=== PATIENT | female | born 1955 | race African-American/Black ===

== ENCOUNTER 2020-07-28 09:31 | Inpatient (IN) | payer OTHER ==
[~2020-07-28] VITALS: Ht 165.1 cm; Wt 85.3 kg
[~2020-07-28 09:31] MED LIST: AMLO10TA13 PO; CLOP75TA28 PO; GLIP10TA9 PO; LOSA100T22 PO; MET50T PO; METF-372 PO
[2020-07-28] MEDS ORDERED: amLODIPine BESYLATE 5 MG TAB PO ONE (09:45)
[2020-07-28 10:13] LABS: Basophils # (auto) 0 10 ^3/uL (0-0.2); Eosinophils # (auto) 0.1 10 ^3/uL (0-0.8); Monocytes # (auto) 0.3 10 ^3/uL (0-1.3); Neutrophils # (auto) 4.1 10 ^3/uL (1.6-8.6); Nucleated Red Blood Cells % 0.1 %; Red Blood Cells 4.34 10^6/uL (4.0-5.20); White Blood Cell 5.5 10^3/uL (4.4-10.8)
[2020-07-28 10:15] LABS: Basophils % (auto) 0.7 % (0.0-2.0); Eosinophils % (auto) 1.2 % (0.0-7.0); Hematocrit 34.2 % (36.0-46.0); Hemoglobin 10.9 g/dL (12.2-16.2); Lymphocytes % (auto) 17.8 % (10.0-50.0); Mean Corpuscular Hgb Conc. 31.7 g/dL (32.0-36.0); Mean Corpuscular Volume 78.7 fL (80.0-100.0); Monocytes % (auto) 4.6 % (0.0-12.0); Neutrophils % (auto) 75.7 % (37.0-80.0); Platelet Count (auto) 180 10^3/uL (140-450); Red Cell Distribution Width 16.4 % (11.8-14.3)
[2020-07-28] MEDS ORDERED: LORazepam 0.5 MG TAB PO ONE (10:15)
[2020-07-28 10:31] LABS: Calcium 9.1 mg/dL (8.5-10.1); Magnesium 2.6 mg/dL (1.6-2.6); Potassium 4.4 mmol/L (3.5-5.1)
[2020-07-28 10:37] LABS: BUN/Creatinine Ratio 14.5; Bilirubin, Total 0.3 mg/dL (0.2-1.0); Total Protein 7.2 g/dL (6.4-8.2)
[2020-07-28 11:00] LABS: Urine Bacteria NONE SEEN /hpf (None Seen); Urine Blood 1+ /uL (Negative); Urine Hyaline Cast FEW /lpf (0 - 2); Urine Specific Gravity 1.012 (1.001-1.035); Urine WBC 1 /hpf (0 - 5)
[2020-07-28 11:01] LABS: Partial Thromboplastin Time 25.7 sec (23.0-31.2)
[2020-07-28] MEDS ORDERED: ENOXAPARIN SOD 100 MG/1 ML SYRINGE SC ONE (16:30)
[2020-07-28] MEDS ORDERED: FUROSEMIDE 100 MG/10ML VIAL IV ONE (17:15)
[2020-07-28] MEDS ORDERED: cloNIDine HCL 0.1 MG TAB PO ONE (17:15)
[2020-07-28] MEDS ORDERED: MORPHINE SULF INJ 2 MG/ML SYRINGE 1ML IV PRN ×3 (17:15→17:45)
[2020-07-28] MEDS ORDERED: NITROGLYCERIN 0.4 MG SL TAB SL PRN ×3 (17:15→17:45)
[2020-07-28] MEDS ORDERED: LOSARTAN POTASSIUM 50 MG TAB PO ONE (17:30)
[2020-07-28] MEDS ORDERED: HYDROcodone-ACET 5/325MG TAB PO PRN (17:45)
[2020-07-28] MEDS ORDERED: MORPHINE SULFATE 4 MG/ML SYR/VIAL IV PRN (17:45)
[2020-07-28] MEDS ORDERED: ATORVASTATIN 20 MG TAB PO ONE (17:45)
[2020-07-28] MEDS ORDERED: LORazepam 0.5 MG TAB PO PRN (17:45)
[2020-07-28] MEDS ORDERED: ALUM & MAG HYDROX-SIMETH LIQ(MAALOX) 30 ML PO ONE (17:45)
[2020-07-28] MEDS ORDERED: METOPROLOL SUCCINATE XL 50 MG TAB PO ONE (17:45)
[2020-07-28] MEDS ORDERED: ONDANSETRON HCL 4 MG/2 ML VIAL IV PRN (17:45)
[2020-07-28] MEDS ORDERED: ACETAMINOPHEN 325 MG TAB PO PRN (17:45)
[2020-07-28] MEDS ORDERED: DEXTROSE (50%) 50ML SYRG IV PRN (18:00)
[2020-07-28] MEDS: SOD CHL 0.45% 1,000 ML IV SCH (18:03)
[2020-07-28 19:10] VITALS: BP 187/74
[2020-07-28] MEDS: IPRATROPIUM BROM 0.5 MG/2.5ML INH SOL NEB SCH ×2 (19:48→22:07)
[2020-07-28] MEDS: FUROSEMIDE 20 MG/2 ML VIAL IV SCH (20:00)
[2020-07-28] MEDS: ACCU-CHEK COMFORT CURVE STRIP VI SCH (21:30)
[2020-07-28] MEDS: hydrALAZINE HCL 20 MG/ML VL IV PRN (21:32)
[2020-07-28 22:00] VITALS: BP 190/85
[2020-07-28] MEDS ORDERED: METOPROLOL TARTRATE 25 MG TAB PO SCH (22:00)
[2020-07-28] MEDS: InsuLIN REG 1unit/0.01ml Soln (100units/ml) SC SCH (23:49)
[2020-07-29] VITALS (27 sets, daily range): BP systolic 116–212; BP diastolic 58–126
[2020-07-29] MEDS: SOD CHL 0.45% 1,000 ML IV SCH (00:52)
[2020-07-29] MEDS ORDERED: METOPROLOL SUCCINATE XL 50 MG TAB PO ONE (01:00)
[2020-07-29] MEDS ORDERED: hydrALAZINE HCL 25 MG TAB PO ONE (01:00)
[2020-07-29] MEDS: IPRATROPIUM BROM 0.5 MG/2.5ML INH SOL NEB SCH ×6 (01:55→21:54)
[2020-07-29] MEDS: hydrALAZINE HCL 25 MG TAB PO SCH ×3 (05:19→21:55)
[2020-07-29] MEDS: hydrALAZINE HCL 20 MG/ML VL IV PRN ×2 (05:20→20:51)
[2020-07-29] MEDS ORDERED: hydrALAZINE HCL 25 MG TAB PO SCH (06:00)
[2020-07-29] MEDS: InsuLIN REG 1unit/0.01ml Soln (100units/ml) SC SCH ×4 (06:48→22:00)
[2020-07-29] MEDS: ACCU-CHEK COMFORT CURVE STRIP VI SCH ×4 (06:48→22:24)
[2020-07-29] MEDS: FUROSEMIDE 20 MG/2 ML VIAL IV SCH (06:49)
[2020-07-29] MEDS: DOCUSATE SOD 100 MG CAP PO SCH (08:43)
[2020-07-29] MEDS: ASPirin 81 mg TAB PO SCH (08:44)
[2020-07-29] MEDS ORDERED: LOSARTAN POTASSIUM 50 MG TAB PO ONE (09:30)
[2020-07-29] MEDS ORDERED: amLODIPine BESYLATE 5 MG TAB PO SCH (10:00)
[2020-07-29] MEDS ORDERED: METOPROLOL SUCCINATE XL 50 MG TAB PO SCH (10:00)
[2020-07-29] MEDS ORDERED: LOSARTAN POTASSIUM 50 MG TAB PO SCH (10:00)
[2020-07-29] MEDS: METOPROLOL TARTRATE 50 MG TAB PO SCH ×2 (10:00→21:57)
[2020-07-29] MEDS ORDERED: SOD CHL 0.45% 1,000 ML IV SCH (10:30)
[2020-07-29] MEDS ORDERED: NIFEdipine ER 30 MG TAB PO ONE (10:30)
[2020-07-29 10:37] LABS: Basophils # (auto) 0.1 10 ^3/uL (0-0.2); Eosinophils # (auto) 0.1 10 ^3/uL (0-0.8); Hemoglobin 10.6 g/dL (12.2-16.2); Lymphocytes # (auto) 1.1 10 ^3/uL (0.4-5.4)
[2020-07-29 10:39] LABS: Basophils % (auto) 0.8 % (0.0-2.0); Eosinophils % (auto) 1.3 % (0.0-7.0); Hematocrit 33.5 % (36.0-46.0); Lymphocytes % (auto) 18.9 % (10.0-50.0); Mean Corpuscular Hemoglobin 25.1 pg (28.0-32.0); Mean Corpuscular Hgb Conc. 31.5 g/dL (32.0-36.0); Mean Corpuscular Volume 79.6 fL (80.0-100.0); Monocytes # (auto) 0.3 10 ^3/uL (0-1.3); Monocytes % (auto) 5.2 % (0.0-12.0); Neutrophils # (auto) 4.5 10 ^3/uL (1.6-8.6); Neutrophils % (auto) 73.8 % (37.0-80.0); Nucleated Red Blood Cells % 0.1 %; Platelet Count (auto) 194 10^3/uL (140-450); Red Blood Cells 4.21 10^6/uL (4.0-5.20); Red Cell Distribution Width 16.4 % (11.8-14.3); White Blood Cell 6.1 10^3/uL (4.4-10.8)
[2020-07-29 10:47] LABS: Albumin 2.8 g/dL (3.4-5.0); Calcium 8.8 mg/dL (8.5-10.1); Potassium 4.2 mmol/L (3.5-5.1)
[2020-07-29 10:50] LABS: BUN/Creatinine Ratio 13.4; Bilirubin, Total 0.2 mg/dL (0.2-1.0); Total Protein 6.8 g/dL (6.4-8.2)
[2020-07-29 10:51] LABS: Magnesium 2.3 mg/dL (1.6-2.6); Phosphorus 4.1 mg/dL (2.5-4.90)
[2020-07-29 11:38] LABS: Urine WBC None Seen /hpf (0 - 5)
[2020-07-29 11:54] LABS: Urine Bacteria NONE SEEN /hpf (None Seen); Urine Blood TRACE /uL (Negative); Urine Specific Gravity 1.009 (1.001-1.035)
[2020-07-29 12:07] LABS: Protein, Urine 158.7 mg/dL (0.0-11.9)
[2020-07-29 12:07] LABS: Alcohol, Urine < 3.0 mg/dL (0-10); Amphetamine Screen, Urine NEGATIVE (NEGATIVE); Barbiturate Scree,Urine NEGATIVE (NEGATIVE); Benzodiazephine Screen, Urine NEGATIVE (NEGATIVE); Cannabinoid Screen, Urine NEGATIVE (NEGATIVE); Cocaine Screen, Urine NEGATIVE (NEGATIVE); Opiate Scree,Urine NEGATIVE (NEGATIVE); Phencyclidine Screen, Urine NEGATIVE (NEGATIVE)
[2020-07-29] MEDS: NIFEdipine ER 30 MG TAB PO SCH ×2 (14:00→21:57)
[2020-07-29] MEDS ORDERED: LABETALOL INJECTION 250 MG in SODIUM CHL 0.9% 200 ML IV ONE (17:00)
[2020-07-29] MEDS: cloNIDine HCL 0.1 MG TAB PO SCH ×2 (18:26→21:56)
[2020-07-29] MEDS: ATORVASTATIN 20 MG TAB PO SCH (21:56)
[2020-07-29] MEDS ORDERED: cloNIDine HCL 0.1 MG TAB PO SCH (22:00)
[2020-07-30] VITALS (64 sets, daily range): BP systolic 101–171; BP diastolic 39–82
[2020-07-30] MEDS: IPRATROPIUM BROM 0.5 MG/2.5ML INH SOL NEB SCH ×6 (01:59→23:10)
[2020-07-30 04:09] LABS: Alkaline Phosphatase 76 U/L (45-117); Anion Gap 9 (5-15); Aspartate Aminotransferase 24 U/L (15-37); BUN/Creatinine Ratio 11.6; Blood Urea Nitrogen 44 mg/dL (7-18); Carbon Dioxide 20 mmol/L (21-32); Chloride 112 mmol/L (98-107); GFR African American 15 mL/min; GFR Non-African American 13 mL/min; Glucose 111 mg/dL (74-106); Potassium 4.6 mmol/L (3.5-5.1); Sodium 141 mmol/L (136-145)
[2020-07-30 04:10] LABS: Alanine Aminotransferase 14 U/L (13-56); Albumin 2.4 g/dL (3.4-5.0); Bilirubin, Total 0.3 mg/dL (0.2-1.0); Calcium 8.3 mg/dL (8.5-10.1); Magnesium 2.4 mg/dL (1.6-2.6); Total Protein 6.2 g/dL (6.4-8.2)
[2020-07-30] MEDS: hydrALAZINE HCL 25 MG TAB PO SCH ×3 (05:39→22:27)
[2020-07-30] MEDS: cloNIDine HCL 0.1 MG TAB PO SCH ×3 (05:40→22:00)
[2020-07-30] MEDS: NIFEdipine ER 30 MG TAB PO SCH ×3 (05:41→22:00)
[2020-07-30] MEDS: ACCU-CHEK COMFORT CURVE STRIP VI SCH ×4 (06:42→22:14)
[2020-07-30] MEDS: InsuLIN REG 1unit/0.01ml Soln (100units/ml) SC SCH ×4 (06:44→22:00)
[2020-07-30] MEDS: DOCUSATE SOD 100 MG CAP PO SCH (10:00)
[2020-07-30] MEDS: METOPROLOL TARTRATE 50 MG TAB PO SCH ×2 (10:00→22:00)
[2020-07-30] MEDS: ASPirin 81 mg TAB PO SCH (10:49)
[2020-07-30] MEDS: ENOXAPARIN SOD 30 MG/0.3 ML SYRINGE SC SCH (10:49)
[2020-07-30 12:14] LABS: Basophils # (auto) 0.1 10 ^3/uL (0-0.2); Basophils % (auto) 0.8 % (0.0-2.0); Eosinophils # (auto) 0.2 10 ^3/uL (0-0.8); Eosinophils % (auto) 2.2 % (0.0-7.0); Hematocrit 32.4 % (36.0-46.0); Hemoglobin 10.3 g/dL (12.2-16.2); Lymphocytes % (auto) 12.3 % (10.0-50.0); Mean Corpuscular Hemoglobin 25.3 pg (28.0-32.0); Mean Corpuscular Hgb Conc. 31.8 g/dL (32.0-36.0); Mean Corpuscular Volume 79.6 fL (80.0-100.0); Monocytes # (auto) 0.4 10 ^3/uL (0-1.3); Monocytes % (auto) 5.5 % (0.0-12.0); Neutrophils # (auto) 6.3 10 ^3/uL (1.6-8.6); Neutrophils % (auto) 79.2 % (37.0-80.0); Nucleated Red Blood Cells % 0.1 %; Platelet Count (auto) 154 10^3/uL (140-450); Red Blood Cells 4.07 10^6/uL (4.0-5.20); Red Cell Distribution Width 16.2 % (11.8-14.3)
[2020-07-30 12:30] LABS: INR 1.1 (0.9-1.15); Partial Thromboplastin Time 27.8 sec (23.0-31.2)
[2020-07-30] MEDS: FUROSEMIDE 40 MG TAB PO SCH (15:57)
[2020-07-30] MEDS: ATORVASTATIN 20 MG TAB PO SCH (22:14)
[2020-07-31] MEDS: IPRATROPIUM BROM 0.5 MG/2.5ML INH SOL NEB SCH ×7 (02:39→22:22)
[2020-07-31 05:00] VITALS: BP 138/65
[2020-07-31] MEDS: NIFEdipine ER 30 MG TAB PO SCH ×3 (05:02→21:42)
[2020-07-31] MEDS: hydrALAZINE HCL 25 MG TAB PO SCH ×3 (06:16→21:33)
[2020-07-31] MEDS: InsuLIN REG 1unit/0.01ml Soln (100units/ml) SC SCH ×4 (06:17→21:25)
[2020-07-31] MEDS: cloNIDine HCL 0.1 MG TAB PO SCH ×3 (06:17→21:33)
[2020-07-31] MEDS: ACCU-CHEK COMFORT CURVE STRIP VI SCH ×4 (06:17→21:25)
[2020-07-31 07:49] LABS: Basophils # (auto) 0 10 ^3/uL (0-0.2); Eosinophils # (auto) 0.2 10 ^3/uL (0-0.8); Lymphocytes # (auto) 0.9 10 ^3/uL (0.4-5.4); Mean Corpuscular Volume 78.5 fL (80.0-100.0); Monocytes # (auto) 0.4 10 ^3/uL (0-1.3); Red Cell Distribution Width 15.8 % (11.8-14.3); White Blood Cell 5.2 10^3/uL (4.4-10.8)
[2020-07-31 07:51] LABS: Basophils % (auto) 0.5 % (0.0-2.0); Eosinophils % (auto) 3.8 % (0.0-7.0); Hematocrit 31.1 % (36.0-46.0); Lymphocytes % (auto) 17.6 % (10.0-50.0); Mean Corpuscular Hemoglobin 25.1 pg (28.0-32.0); Monocytes % (auto) 7.6 % (0.0-12.0); Neutrophils # (auto) 3.7 10 ^3/uL (1.6-8.6); Neutrophils % (auto) 70.5 % (37.0-80.0); Platelet Count (auto) 181 10^3/uL (140-450); Red Blood Cells 3.96 10^6/uL (4.0-5.20)
[2020-07-31 08:05] LABS: Calcium 8.7 mg/dL (8.5-10.1); Potassium 4.3 mmol/L (3.5-5.1)
[2020-07-31] MEDS: METOPROLOL TARTRATE 50 MG TAB PO SCH ×2 (09:24→21:42)
[2020-07-31] MEDS: DOCUSATE SOD 100 MG CAP PO SCH (09:28)
[2020-07-31] MEDS: ASPirin 81 mg TAB PO SCH (09:28)
[2020-07-31] MEDS: ENOXAPARIN SOD 30 MG/0.3 ML SYRINGE SC SCH (09:29)
[2020-07-31] MEDS: FUROSEMIDE 40 MG TAB PO SCH (09:29)
[2020-07-31 09:43] VITALS: BP 141/65
[2020-07-31 12:10] LABS: Urine Bacteria FEW /hpf (None Seen); Urine Blood Negative /uL (Negative); Urine Mucus FEW (None Seen); Urine Specific Gravity 1.017 (1.001-1.035); Urine WBC 4 /hpf (0 - 5)
[2020-07-31 13:00] VITALS: BP 148/88
[2020-07-31 17:36] VITALS: BP 152/52
[2020-07-31] MEDS: ATORVASTATIN 20 MG TAB PO SCH (21:34)
[2020-07-31 22:00] VITALS: BP 161/74
[2020-07-31] MEDS: hydrALAZINE HCL 20 MG/ML VL IV PRN (22:36)
[2020-08-01] VITALS (7 sets, daily range): BP systolic 132–185; BP diastolic 61–81
[2020-08-01] MEDS: NIFEdipine ER 30 MG TAB PO SCH ×2 (06:00→14:34)
[2020-08-01] MEDS: cloNIDine HCL 0.1 MG TAB PO SCH ×2 (06:22→14:32)
[2020-08-01] MEDS: hydrALAZINE HCL 25 MG TAB PO SCH ×2 (06:22→14:33)
[2020-08-01] MEDS: InsuLIN REG 1unit/0.01ml Soln (100units/ml) SC SCH ×3 (06:22→17:00)
[2020-08-01] MEDS: ACCU-CHEK COMFORT CURVE STRIP VI SCH ×3 (06:22→17:00)
[2020-08-01] MEDS: IPRATROPIUM BROM 0.5 MG/2.5ML INH SOL NEB SCH ×5 (06:54→22:00)
[2020-08-01 07:13] LABS: Calcium 8.8 mg/dL (8.5-10.1); Potassium 4.3 mmol/L (3.5-5.1)
[2020-08-01 07:16] LABS: BUN/Creatinine Ratio 15.6
[2020-08-01] MEDS: ASPirin 81 mg TAB PO SCH (10:19)
[2020-08-01] MEDS: DOCUSATE SOD 100 MG CAP PO SCH (10:19)
[2020-08-01] MEDS: FUROSEMIDE 40 MG TAB PO SCH (10:20)
[2020-08-01] MEDS: ENOXAPARIN SOD 30 MG/0.3 ML SYRINGE SC SCH (10:20)
[2020-08-01] MEDS: METOPROLOL TARTRATE 50 MG TAB PO SCH (10:20)
[2020-08-01] MEDS ORDERED: CHOLECALCIFEROL (VITD3) 1,000UNIT=25mCg TAB PO ONE (13:45)
[2020-08-01] MEDS: hydrALAZINE HCL 20 MG/ML VL IV PRN (16:19)
[2020-08-01] MEDS ORDERED: LORazepam 2MG/ML-1ML VIAL IV PRN (18:00)
[2020-08-02 08:09] LABS: Immunoglobulin G, Serum 1290 mg/dL (586-1602)
[2020-08-02] MEDS ORDERED: CHOLECALCIFEROL (VITD3) 1,000UNIT=25mCg TAB PO SCH (10:00)
== END 2020-08-01 21:55 | disposition short-term general hospital (02) | DRG 280 ==
LOC: ER 09:31 → EDBD 09:31 → TELE-WESTW 09:32 → DOU IN ICU 07-29 20:30 → ICU WEST 07-30 08:04 → TELE-WESTW 07-30 21:50
PROVIDERS: ADMIT Hospitalist; ATTEND Family Medicine
DX: I16.1 Hypertensive emergency (principal); I21.A1 Myocardial infarction type 2; N17.0 Acute kidney failure with tubular necrosis; E44.0 Moderate protein-calorie malnutrition; N18.4 Chronic kidney disease, stage 4 (severe); I69.351 Hemiplegia and hemiparesis following cerebral infarction affecting right dominant side; R47.01 Aphasia; N25.81 Secondary hyperparathyroidism of renal origin; I50.9 Heart failure, unspecified; I13.0 Hypertensive heart and chronic kidney disease with heart failure and stage 1 through stage 4 chronic kidney disease, or unspecified chronic kidney disease; D64.9 Anemia, unspecified; E66.01 Morbid (severe) obesity due to excess calories; E11.22 Type 2 diabetes mellitus with diabetic chronic kidney disease; I70.0 Atherosclerosis of aorta; Z20.828 Contact with and (suspected) exposure to other viral communicable diseases; F17.200 Nicotine dependence, unspecified, uncomplicated; E11.40 Type 2 diabetes mellitus with diabetic neuropathy, unspecified; E78.5 Hyperlipidemia, unspecified; Z80.6 Family history of leukemia; Z90.49 Acquired absence of other specified parts of digestive tract; Z90.89 Acquired absence of other organs; Z90.710 Acquired absence of both cervix and uterus; Z79.84 Long term (current) use of oral hypoglycemic drugs; Z79.899 Other long term (current) drug therapy; Z83.3 Family history of diabetes mellitus; Z82.3 Family history of stroke; Z79.02 Long term (current) use of antithrombotics/antiplatelets; Z79.82 Long term (current) use of aspirin; Z82.49 Family history of ischemic heart disease and other diseases of the circulatory system; Z91.14 Patient's other noncompliance with medication regimen; Z68.31 Body mass index [BMI] 31.0-31.9, adult
CPT/HCPCS: 36415; 70450; 71045; 76775; 80048; 80053; 80307; 81001; 82088; 82306; 82533; 82570; 82784; 82962; 83036; 83520; 83735; 83835; 83880; 83883; 83970; 84100; 84155; 84156; 84165; 84166; 84244; 84443; 84484; 85025; 85379; 85610; 85730; 86038; 86160; 86256; 86334; 87040; 87081; 87086; 87426; 92610; 93005; 93306; 93886; 93975; 94640; 99291; G0378; J1815